=== PATIENT | male | born 2005 | race Caucasian/White ===

== ENCOUNTER 2023-04-14 14:20 | Emergency (ER) | payer OTHER ==
[2023-04-14 14:53] VITALS: BP 135/87; PULSE 98; RESP 18; TEMP 98.4; BMI 26.6
[2023-04-14 18:03] LABS: SYPHILIS W/ RPR CONF NON-REACTIVE (NONREACTIVE)
[2023-04-14 18:31] LABS: HIV INTERPRETATION NEGATIVE (NEGATIVE)
== END 2023-04-14 16:10 | disposition home or self-care (01) ==
LOC: FER 14:20
DX: R21 Rash and other nonspecific skin eruption (principal); R50.9 Fever, unspecified; R09.81 Nasal congestion; M79.10 Myalgia, unspecified site; R06.02 Shortness of breath; R51.9 Headache, unspecified; Z20.822 Contact with and (suspected) exposure to COVID-19
CPT/HCPCS: 0241U-QW; 36415; 86757; 86780; 87389; 99283-25